=== PATIENT | male | born 1940 | race Caucasian/White ===

== ENCOUNTER 2020-08-06 20:25 | Inpatient (IN) | payer MEDICARE ==
[~2020-08-06] VITALS: Ht 180.3 cm; Wt 96.0 kg
[2020-08-06 21:20] LABS: BASOPHILS % (AUTO) 0.2 % (0.0-5.0); EOSINOPHILS % (AUTO) 1.1 % (0.0-8.0); HEMATOCRIT 34.3 % (42-54); MEAN CORPUSCULAR HEMOGLOBIN 34.3 pg (27.0-33.0); MEAN CORPUSCULAR HGB CONC 34.7 g/dL (32.0-36.0); MEAN CORPUSCULAR VOLUME 98.8 fL (79-99); MONOCYTES % (AUTO) 7.2 % (3.0-13.0); NEUTROPHILS % (AUTO) 79.9 % (40.0-77.0); PLATELET COUNT (AUTO) 285 K/uL (130-400); RED BLOOD CELL COUNT(AUTO) 3.47 MIL/uL (4.50-6.20); RED CELL DISTRIBUTION WIDTH 12.9 % (11.0-15.5); WHITE BLOOD COUNT (AUTO) 21.5 K/uL (4.8-10.8)
[2020-08-06 21:29] LABS: CREATININE 1.9 mg/dL (0.5-1.5); POTASSIUM 4.1 mmol/L (3.5-5.1)
[2020-08-06 21:47] LABS: ALBUMIN 3.4 g/dL (3.5-5.0); BILIRUBIN,TOTAL 0.8 mg/dL (0.2-1.0); TOTAL PROTEIN, SERUM 8.9 g/dL (6.0-8.3)
[2020-08-06] MEDS ORDERED: ACETAMINOPHEN 500 MG TABLET ONE (22:12)
[2020-08-06] MEDS ORDERED: ZOSYN 3.375GM+NS 50ML 50 ML IV ONE (22:12)
[2020-08-06 22:38] LABS: APPEARANCE,URINE Cloudy (CLEAR); BILIRUBIN,URINE Negative (NEGATIVE); COLOR,URINE Yellow (YELLOW); GLUCOSE, URINE (UA) Negative (NEGATIVE); KETONES,URINE Negative (NEGATIVE); LEUKOCYTE ESTERASE ,URINE Trace (NEGATIVE); NITRATE,URINE Negative (NEGATIVE); OCCULT BLOOD,URINE Trace (NEGATIVE); PROTEIN,URINE POS 2+ mg/dL (NEGATIVE); UROBILINOGEN,URINE 0.2 mg/dL (0.2-1.0)
[2020-08-06 22:41] LABS: INR 1.1 (0.85-1.15); PROTHROMBIN TIME 11.9 SEC (9.6-11.6)
[2020-08-06 22:42] LABS: PARTIAL THROMBOPLASTIN TIME 31.4 SEC (26.3-35.5)
[2020-08-06 22:50] LABS: BACTERIA,URINE Rare /HPF (None Seen); SQUAMOUS EPITHELIAL CELL,UR Moderate /HPF (0-2)
[2020-08-06] MEDS ORDERED: IOHEXOL-350 75 ML VIAL IV ONE (23:45)
[2020-08-07] VITALS (7 sets, daily range): BP systolic 106–129; BP diastolic 35–65
[2020-08-07] MEDS: 0.9%NACL 1000ML 1,000 ML IV SCH ×3 (01:00→21:00)
[2020-08-07] MEDS ORDERED: NITROGLYCERIN 0.4 MG SL TAB SL PRN (01:00)
[2020-08-07] MEDS ORDERED: VANCOMYCIN PROTOCOL PER PHARMACY IV PRN (01:00)
[2020-08-07] MEDS ORDERED: ACETAMINOPHEN 325 MG TAB PO PRN (01:00)
[2020-08-07] MEDS ORDERED: ONDANSETRON 4MG INJ IV PRN (01:00)
[2020-08-07] MEDS: CEFTRIAXONE 1G VIAL IV SCH ×2 (01:00→23:41)
[2020-08-07 01:46] LABS: CREATINE KINASE, TOTAL 230 U/L (21-232); MYOGLOBIN 415 ng/mL (10-92); TROPONIN I < 0.04 ng/mL (0.00-0.06)
[2020-08-07] MEDS ORDERED: VANCOMYCIN 1G/250ML KIT 250 ML IV ONE ×2 (02:12→02:30)
[2020-08-07] MEDS ORDERED: 0.9%NACL 1000ML 1,000 ML IV ONE (02:13)
[2020-08-07] MEDS ORDERED: CEFTRIAXONE 1G VIAL ONE (02:13)
[2020-08-07] MEDS ORDERED: AZITHROMYCIN 500MG+NS 250ML 250 ML IV SCH (02:45)
[2020-08-07] MEDS ORDERED: FLEC100T3 PO (03:09)
[2020-08-07] MEDS ORDERED: MAGN250T10 PO (03:09)
[2020-08-07] MEDS ORDERED: LOSA50TA64 PO (03:09)
[2020-08-07] MEDS ORDERED: APIX5TAB PO (03:09)
[2020-08-07] MEDS ORDERED: MULT-1367 PO (03:09)
[2020-08-07] MEDS ORDERED: ATOR40TA71 PO (03:09)
[2020-08-07] MEDS: AZITHROMYCIN 500MG+NS 250ML 250 ML IV SCH (05:00)
[2020-08-07] MEDS ORDERED: AZITHROMYCIN 500MG+NS 250ML 250 ML IV ONE (05:25)
[2020-08-07 05:37] LABS: MEAN CORPUSCULAR HEMOGLOBIN 34.2 pg (27.0-33.0); MEAN CORPUSCULAR HGB CONC 34.8 g/dL (32.0-36.0); MEAN CORPUSCULAR VOLUME 98.2 fL (79-99); PLATELET COUNT (AUTO) 233 K/uL (130-400); RED BLOOD CELL COUNT(AUTO) 2.75 MIL/uL (4.50-6.20); RED CELL DISTRIBUTION WIDTH 12.9 % (11.0-15.5); WHITE BLOOD COUNT (AUTO) 17.7 K/uL (4.8-10.8)
[2020-08-07 05:56] LABS: BAND NEUTROPHILS % (MANUAL) 4 % (0-2); LYMPHOCYTES % (MANUAL) 6 % (22-44); MAN.DIFF COMMENT-IMPRESSION MANUAL DIFFERENTIAL; MONOCYTES % (MANUAL) 5 % (2-9); PLATELET MORPHOLOGY COMMENT ADEQUATE; SEGMENTED NEUTROPHILS % 85 % (40-70)
[2020-08-07 05:59] LABS: ALBUMIN 2.6 g/dL (3.5-5.0); BILIRUBIN,TOTAL 0.5 mg/dL (0.2-1.0); CREATININE 1.8 mg/dL (0.5-1.5); MAGNESIUM 1.8 mg/dL (1.80-2.40); POTASSIUM 4.6 mmol/L (3.5-5.1); TOTAL PROTEIN, SERUM 6.8 g/dL (6.0-8.3)
[2020-08-07] MEDS ORDERED: COMPOUND IV REFRIGERATED 1 EACH IVSOLN MISC PRN (06:45)
[2020-08-07] MEDS: FAMOTIDINE 20MG TAB PO SCH ×2 (08:52→21:37)
[2020-08-07] MEDS: MAGNESIUM OXIDE 400 MG TABLET PO SCH ×2 (08:52→21:37)
[2020-08-07] MEDS: LOSARTAN 50 MG TABLET PO SCH (08:52)
[2020-08-07] MEDS: APIXABAN 5 MG TABLET PO SCH ×2 (08:53→21:37)
[2020-08-07] MEDS: MULTIVITAMIN TABLET PO SCH (08:53)
[2020-08-07] MEDS ORDERED: PNEUMOCOCCAL VACCINE POLYVALENT 0.5 ML/VIAL [PPV] SQ SCH (09:00)
[2020-08-07] MEDS ORDERED: HEPARIN 5,000 UNIT VIAL SQ SCH (09:00)
[2020-08-07] MEDS: FLECAINIDE ACETATE 100 MG TABLET PO SCH ×2 (09:06→21:37)
[2020-08-07] MEDS ORDERED: BENZOCAINE/MENTH/CETYLPYRD CL 1 EACH LOZENGE MM PRN (18:15)
[2020-08-07] MEDS ORDERED: BENZOCAINE/MENTH/CETYLPYRD CL 1 EACH LOZENGE MM ONE (18:18)
[2020-08-07] MEDS: ATORVASTATIN 40 MG TABLET PO SCH (21:37)
[2020-08-07] MEDS: VANCOMYCIN 1G 1.25 GM in 0.9% NACL 250ML 250 ML IV SCH (21:38)
[2020-08-08] VITALS (7 sets, daily range): BP systolic 115–132; BP diastolic 55–71
[2020-08-08 05:17] LABS: BASOPHILS % (AUTO) 0.4 % (0.0-5.0); EOSINOPHILS % (AUTO) 2.1 % (0.0-8.0); HEMATOCRIT 27.7 % (42-54); LYMPHOCYTES % (AUTO) 15.5 % (21.0-51.0); MEAN CORPUSCULAR HEMOGLOBIN 34.1 pg (27.0-33.0); MEAN CORPUSCULAR HGB CONC 33.6 g/dL (32.0-36.0); MEAN CORPUSCULAR VOLUME 101.5 fL (79-99); MONOCYTES % (AUTO) 10.8 % (3.0-13.0); NEUTROPHILS % (AUTO) 69.9 % (40.0-77.0); PLATELET COUNT (AUTO) 263 K/uL (130-400); RED BLOOD CELL COUNT(AUTO) 2.73 MIL/uL (4.50-6.20); RED CELL DISTRIBUTION WIDTH 13.1 % (11.0-15.5); WHITE BLOOD COUNT (AUTO) 14.2 K/uL (4.8-10.8)
[2020-08-08] MEDS: AZITHROMYCIN 500MG+NS 250ML 250 ML IV SCH (05:58)
[2020-08-08 05:59] LABS: ALBUMIN 2.5 g/dL (3.5-5.0); BILIRUBIN,TOTAL 0.4 mg/dL (0.2-1.0); CREATININE 1.6 mg/dL (0.5-1.5); POTASSIUM 4.3 mmol/L (3.5-5.1)
[2020-08-08 06:10] LABS: CRP QUANTITATIVE 265.3 mg/L (0.00-9.0)
[2020-08-08 07:00] LABS: ERYTHROCYTE SEDIMENTATION RATE 119 MM/HR (0-20)
[2020-08-08] MEDS: FAMOTIDINE 20MG TAB PO SCH ×2 (09:00→20:43)
[2020-08-08] MEDS: APIXABAN 5 MG TABLET PO SCH ×2 (09:00→20:43)
[2020-08-08] MEDS: MAGNESIUM OXIDE 400 MG TABLET PO SCH ×2 (09:00→20:42)
[2020-08-08] MEDS: MULTIVITAMIN TABLET PO SCH (09:00)
[2020-08-08] MEDS: LOSARTAN 50 MG TABLET PO SCH (09:00)
[2020-08-08] MEDS ORDERED: SOLU-MEDROL 40MG VIAL IVP SCH (10:45)
[2020-08-08] MEDS: FLECAINIDE ACETATE 100 MG TABLET PO SCH ×2 (11:30→20:43)
[2020-08-08] MEDS: ATORVASTATIN 40 MG TABLET PO SCH (20:43)
[2020-08-08] MEDS: VANCOMYCIN 1G 1.25 GM in 0.9% NACL 250ML 250 ML IV SCH (20:43)
[2020-08-09] MEDS: CEFTRIAXONE 1G VIAL IV SCH (00:46)
[2020-08-09 03:51] VITALS: BP 131/71
[2020-08-09] MEDS: AZITHROMYCIN 500MG+NS 250ML 250 ML IV SCH (04:40)
[2020-08-09 05:14] LABS: BASOPHILS % (AUTO) 0.3 % (0.0-5.0); EOSINOPHILS % (AUTO) 1.1 % (0.0-8.0); HEMATOCRIT 28.2 % (42-54); LYMPHOCYTES % (AUTO) 11.4 % (21.0-51.0); MEAN CORPUSCULAR HEMOGLOBIN 33.9 pg (27.0-33.0); MEAN CORPUSCULAR VOLUME 99.6 fL (79-99); MONOCYTES % (AUTO) 7.1 % (3.0-13.0); NEUTROPHILS % (AUTO) 78.2 % (40.0-77.0); PLATELET COUNT (AUTO) 303 K/uL (130-400); RED BLOOD CELL COUNT(AUTO) 2.83 MIL/uL (4.50-6.20); RED CELL DISTRIBUTION WIDTH 12.9 % (11.0-15.5)
[2020-08-09 05:28] LABS: ALBUMIN 2.5 g/dL (3.5-5.0); BILIRUBIN,TOTAL 0.3 mg/dL (0.2-1.0); CREATININE 1.7 mg/dL (0.5-1.5); POTASSIUM 4.8 mmol/L (3.5-5.1); TOTAL PROTEIN, SERUM 7.3 g/dL (6.0-8.3)
[2020-08-09 08:16] VITALS: BP 132/92
[2020-08-09] MEDS: FLECAINIDE ACETATE 100 MG TABLET PO SCH ×2 (09:56→20:10)
[2020-08-09] MEDS: MULTIVITAMIN TABLET PO SCH (09:56)
[2020-08-09] MEDS: FAMOTIDINE 20MG TAB PO SCH ×2 (09:56→20:10)
[2020-08-09] MEDS: LOSARTAN 50 MG TABLET PO SCH (09:56)
[2020-08-09] MEDS: MAGNESIUM OXIDE 400 MG TABLET PO SCH ×2 (09:56→20:10)
[2020-08-09] MEDS: APIXABAN 5 MG TABLET PO SCH ×2 (09:57→20:10)
[2020-08-09 12:00] VITALS: BP 121/64
[2020-08-09 16:00] VITALS: BP 115/55
[2020-08-09 19:43] VITALS: BP 112/64
[2020-08-09] MEDS: ATORVASTATIN 40 MG TABLET PO SCH (20:10)
[2020-08-10] VITALS (7 sets, daily range): BP systolic 110–153; BP diastolic 57–74
[2020-08-10] MEDS: CEFTRIAXONE 1G VIAL IV SCH (00:36)
[2020-08-10] MEDS: ACETAMINOPHEN 325 MG TAB PO PRN ×2 (00:44→09:09)
[2020-08-10 05:51] LABS: BASOPHILS % (AUTO) 0.4 % (0.0-5.0); EOSINOPHILS % (AUTO) 2.1 % (0.0-8.0); HEMATOCRIT 29.2 % (42-54); MEAN CORPUSCULAR HEMOGLOBIN 33.2 pg (27.0-33.0); MEAN CORPUSCULAR HGB CONC 32.9 g/dL (32.0-36.0); MONOCYTES % (AUTO) 8.8 % (3.0-13.0); NEUTROPHILS % (AUTO) 68.2 % (40.0-77.0); PLATELET COUNT (AUTO) 350 K/uL (130-400); RED BLOOD CELL COUNT(AUTO) 2.89 MIL/uL (4.50-6.20); RED CELL DISTRIBUTION WIDTH 13.2 % (11.0-15.5); WHITE BLOOD COUNT (AUTO) 16.3 K/uL (4.8-10.8)
[2020-08-10 06:06] LABS: ALBUMIN 2.5 g/dL (3.5-5.0); BILIRUBIN,TOTAL 0.2 mg/dL (0.2-1.0); CREATININE 1.7 mg/dL (0.5-1.5); POTASSIUM 4.5 mmol/L (3.5-5.1); TOTAL PROTEIN, SERUM 7.1 g/dL (6.0-8.3)
[2020-08-10] MEDS: FAMOTIDINE 20MG TAB PO SCH ×2 (09:03→20:48)
[2020-08-10] MEDS: MULTIVITAMIN TABLET PO SCH (09:03)
[2020-08-10] MEDS: APIXABAN 5 MG TABLET PO SCH ×2 (09:03→20:48)
[2020-08-10] MEDS: FLECAINIDE ACETATE 100 MG TABLET PO SCH ×2 (09:04→20:47)
[2020-08-10] MEDS: MAGNESIUM OXIDE 400 MG TABLET PO SCH ×2 (09:04→20:48)
[2020-08-10] MEDS: LOSARTAN 50 MG TABLET PO SCH (09:04)
[2020-08-10] MEDS: SOLU-MEDROL 40MG VIAL IVP SCH (12:22)
[2020-08-10] MEDS ORDERED: VANCOMYCIN PROTOCOL PER PHARMACY IV SCH (15:15)
[2020-08-10] MEDS ORDERED: COMPOUND IV REFRIGERATED 1 EACH IVSOLN MISC PRN (15:30)
[2020-08-10] MEDS ORDERED: VANCOMYCIN 1G 1.5 GM in 0.9% NACL 250ML 250 ML IV SCH (16:00)
[2020-08-10] MEDS: ATORVASTATIN 40 MG TABLET PO SCH (20:48)
[2020-08-11] MEDS: CEFTRIAXONE 1G VIAL IV SCH (02:01)
[2020-08-11 03:19] VITALS: BP 137/73
[2020-08-11 06:13] LABS: BASOPHILS % (AUTO) 0.4 % (0.0-5.0); EOSINOPHILS % (AUTO) 0.2 % (0.0-8.0); HEMATOCRIT 29.9 % (42-54); LYMPHOCYTES % (AUTO) 16.8 % (21.0-51.0); MEAN CORPUSCULAR HEMOGLOBIN 32.9 pg (27.0-33.0); MEAN CORPUSCULAR HGB CONC 33.1 g/dL (32.0-36.0); MEAN CORPUSCULAR VOLUME 99.3 fL (79-99); MONOCYTES % (AUTO) 8.8 % (3.0-13.0); PLATELET COUNT (AUTO) 394 K/uL (130-400); RED BLOOD CELL COUNT(AUTO) 3.01 MIL/uL (4.50-6.20); RED CELL DISTRIBUTION WIDTH 12.8 % (11.0-15.5); WHITE BLOOD COUNT (AUTO) 15.9 K/uL (4.8-10.8)
[2020-08-11 06:22] LABS: CREATININE 1.5 mg/dL (0.5-1.5); POTASSIUM 4.6 mmol/L (3.5-5.1)
[2020-08-11 08:06] VITALS: BP 142/66
[2020-08-11] MEDS: MAGNESIUM OXIDE 400 MG TABLET PO SCH (08:40)
[2020-08-11] MEDS: LOSARTAN 50 MG TABLET PO SCH (08:40)
[2020-08-11] MEDS: SOLU-MEDROL 40MG VIAL IVP SCH (08:40)
[2020-08-11] MEDS: FAMOTIDINE 20MG TAB PO SCH (08:40)
[2020-08-11] MEDS: APIXABAN 5 MG TABLET PO SCH (08:41)
[2020-08-11] MEDS: FLECAINIDE ACETATE 100 MG TABLET PO SCH (08:41)
[2020-08-11] MEDS: MULTIVITAMIN TABLET PO SCH (08:41)
[2020-08-11] MEDS ORDERED: SOLU-MEDROL 40MG VIAL IVP SCH (09:00)
[2020-08-11] MEDS ORDERED: METH4TAB3 PO (09:32)
[2020-08-11 11:29] VITALS: BP 149/48
== END 2020-08-11 15:40 | disposition home or self-care (01) | DRG 871 ==
LOC: EDH 20:25 → EDHIP 08-07 00:37 → 3DH 08-07 00:55
PROVIDERS: ADMIT Hospitalist; ATTEND Hospitalist
PROC: 3E0234Z Introduction of Serum, Toxoid and Vaccine into Muscle, Percutaneous Approach (ICD-10-PCS; principal; 2020-08-07)
DX: A41.50 Gram-negative sepsis, unspecified (principal); J15.6 Pneumonia due to other Gram-negative bacteria; N39.0 Urinary tract infection, site not specified; L03.116 Cellulitis of left lower limb; L03.115 Cellulitis of right lower limb; N17.9 Acute kidney failure, unspecified; I12.9 Hypertensive chronic kidney disease with stage 1 through stage 4 chronic kidney disease, or unspecified chronic kidney disease; E78.5 Hyperlipidemia, unspecified; I48.91 Unspecified atrial fibrillation; Z96.651 Presence of right artificial knee joint; I25.10 Atherosclerotic heart disease of native coronary artery without angina pectoris; R22.1 Localized swelling, mass and lump, neck; R53.81 Other malaise; N18.30 Chronic kidney disease, stage 3 unspecified; E66.9 Obesity, unspecified; Z68.29 Body mass index [BMI] 29.0-29.9, adult; Z95.5 Presence of coronary angioplasty implant and graft; Z79.01 Long term (current) use of anticoagulants; Z23 Encounter for immunization; Z82.3 Family history of stroke; Z80.0 Family history of malignant neoplasm of digestive organs; Z82.49 Family history of ischemic heart disease and other diseases of the circulatory system; Z20.822 Contact with and (suspected) exposure to COVID-19
CPT/HCPCS: 36415; 70450; 70490; 71045; 71275; 76882; 80048; 80053; 80202; 81001; 82550; 83605; 83735; 83874; 83880; 84145; 84484; 85025; 85378; 85610; 85651; 85730; 86140; 87040; 87071; 87077; 87088; 87186; 87205; 87426; 87641; 87804; 87880; 90732; 92610; 93005; 93971; G0378; J0456; J0696; J2543; J2920; J3370; J7030; J7050; Q9967; U0003

== ENCOUNTER → 2021-03-27 | Outpatient (CLI) | payer MEDICARE ==
[~2021-03-27] MED LIST: APIX5TAB PO; ATOR40TA71 PO; FLEC100T3 PO; LOSA50TA64 PO; MAGN250T10 PO; METH4TAB3 PO; MULT-1367 PO
== END | disposition home or self-care (01) ==
LOC: RAH 11:53
PROVIDERS: ATTEND Internal Medicine
DX: I70.0 Atherosclerosis of aorta (principal); M47.815 Spondylosis without myelopathy or radiculopathy, thoracolumbar region; I48.91 Unspecified atrial fibrillation
CPT/HCPCS: 71046

== ENCOUNTER 2021-04-04 06:35 | Day surgery (SDC) | payer MEDICARE ==
[2021-03-30 16:37] LABS: BASOPHILS % (AUTO) 0.6 % (0.0-5.0); EOSINOPHILS % (AUTO) 4.2 % (0.0-8.0); HEMATOCRIT 29.4 % (42-54); MEAN CORPUSCULAR HEMOGLOBIN 33.7 pg (27.0-33.0); MEAN CORPUSCULAR HGB CONC 34.4 g/dL (32.0-36.0); MONOCYTES % (AUTO) 12.9 % (3.0-13.0); NEUTROPHILS % (AUTO) 55.1 % (40.0-77.0); PLATELET COUNT (AUTO) 222 K/uL (130-400); RED CELL DISTRIBUTION WIDTH 13.2 % (11.0-15.5); WHITE BLOOD COUNT (AUTO) 6.5 K/uL (4.8-10.8)
[2021-03-30 16:45] LABS: CREATININE 1.7 mg/dL (0.5-1.5); POTASSIUM 4.6 mmol/L (3.5-5.1)
[2021-04-03 11:35] VITALS: BP 140/63
[2021-04-04] VITALS (13 sets, daily range): BP systolic 107–132; BP diastolic 50–77
[~2021-04-04] VITALS: Ht 175.3 cm; Wt 88.8 kg
[~2021-04-04 06:35] MED LIST changes: -METH4TAB3 PO
[2021-04-04] MEDS ORDERED: LACTATED RINGERS 1000ML 1,000 ML IV ONE (07:15)
[2021-04-04] MEDS ORDERED: PHENYLEPHRINE HCL 10 MG/ML 1ML VIAL IV ONE (07:19)
[2021-04-04] MEDS ORDERED: LIDOCAINE PF 100MG/5ML (2%) SYRINGE 5ML ONE (07:19)
[2021-04-04] MEDS ORDERED: DEXAMETHASONE SOD PHOSPHATE 10MG/ML 1ML VIAL ONE (07:19)
[2021-04-04] MEDS ORDERED: SUCCINYLCHOLINE CHLORIDE 20 MG/ML 10 ML VIAL ONE ×2 (07:19→07:36)
[2021-04-04] MEDS ORDERED: ONDANSETRON 4MG INJ ONE (07:20)
[2021-04-04] MEDS ORDERED: EPHEDRINE SULFATE 50 MG/ML AMPULE ONE (07:20)
[2021-04-04] MEDS ORDERED: GLYCOPYRROLATE 1 MG/5 ML SYRINGE ONE (07:20)
[2021-04-04] MEDS ORDERED: PROPOFOL 10 MG/ML 20ML VIAL IV ONE (07:20)
[2021-04-04] MEDS ORDERED: NEOSTIGMINE 5MG/5ML SYR IV ONE (07:20)
[2021-04-04] MEDS ORDERED: ROCURONIUM 10MG/1ML SYR 10 MG/ML ML ONE (07:21)
[2021-04-04] MEDS ORDERED: NEOMY SULF/BACITRAC ZN/POLY OINT 30GM TUBE TP ONE (07:21)
[2021-04-04] MEDS ORDERED: FENTANYL CITRATE PF 50 MCG/1 ML 2ML VIAL ONE (07:21)
[2021-04-04] MEDS ORDERED: EPINEPHRINE 1 MG/ML 30ML VIAL IJ ONE (07:21)
[2021-04-04] MEDS ORDERED: LIDOCAINE HCL 1% 20 ML VIAL ONE (07:21)
[2021-04-04] MEDS ORDERED: BACITRACIN 28.4 GM OINT TP ONE (07:21)
[2021-04-04] MEDS ORDERED: THROMBIN-JMI 5000 UNIT/VIAL TP ONE (07:22)
== END 2021-04-04 10:56 | disposition home or self-care (01) ==
LOC: DAH 06:35
PROVIDERS: ATTEND Otolaryngology Plastic Surgery within the Head & Neck
DX: H72.91 Unspecified perforation of tympanic membrane, right ear (principal); Z20.822 Contact with and (suspected) exposure to COVID-19; H91.8X1 Other specified hearing loss, right ear; H70.11 Chronic mastoiditis, right ear; I44.0 Atrioventricular block, first degree; I10 Essential (primary) hypertension; I25.10 Atherosclerotic heart disease of native coronary artery without angina pectoris; I48.91 Unspecified atrial fibrillation; Z79.01 Long term (current) use of anticoagulants; Z79.899 Other long term (current) drug therapy; Z98.890 Other specified postprocedural states
CPT/HCPCS: 36415; 69645; 80048; 85025; 87635; 93005; A4215; A4221; A4222; A4223; A4452; A4649; A4663; A6260; A6446; C9803; J0171; J0330 ×2; J1100; J2001; J2370; J2405; J2704; J3010; J3490; J7040; J7120 ×2; J2710

== ENCOUNTER 2022-03-06 23:42 | Observation (INO) | payer MEDICARE ==
[~2022-03-06] VITALS: Ht 177.8 cm; Wt 95.3 kg
[2022-03-07 00:18] LABS: BASOPHILS % (AUTO) 0.2 % (0.0-5.0); EOSINOPHILS % (AUTO) 0.7 % (0.0-8.0); LYMPHOCYTES % (AUTO) 5.8 % (21.0-51.0); MEAN CORPUSCULAR HEMOGLOBIN 33.7 pg (27.0-33.0); MEAN CORPUSCULAR HGB CONC 33.9 g/dL (32.0-36.0); MEAN CORPUSCULAR VOLUME 99.4 fL (79-99); MONOCYTES % (AUTO) 10.1 % (3.0-13.0); NEUTROPHILS % (AUTO) 82.7 % (40.0-77.0); PLATELET COUNT (AUTO) 259 K/uL (130-400); RED BLOOD CELL COUNT(AUTO) 3.32 MIL/uL (4.50-6.20); RED CELL DISTRIBUTION WIDTH 12.8 % (11.0-15.5); WHITE BLOOD COUNT (AUTO) 14.9 K/uL (4.8-10.8)
[2022-03-07 00:27] LABS: CREATININE 2.1 mg/dL (0.5-1.5)
[2022-03-07] MEDS ORDERED: IPRATROPIUM/ALBUTEROL SULFATE 3 ML SOLUTION IH ONE (00:30)
[2022-03-07] MEDS ORDERED: FUROSEMIDE 40MG VIAL IV ONE (00:30)
[2022-03-07 00:33] LABS: ALBUMIN 3.8 g/dL (3.5-5.0); TOTAL PROTEIN, SERUM 7.8 g/dL (6.0-8.3)
[2022-03-07] MEDS ORDERED: CEFTRIAXONE 1G VIAL IVP ONE (02:00)
[2022-03-07] MEDS ORDERED: APIX5TAB PO (03:17)
[2022-03-07] MEDS ORDERED: ATOR40TA71 PO (03:17)
[2022-03-07] MEDS ORDERED: MAGN250T35 PO (03:17)
[2022-03-07] MEDS ORDERED: MULT-1367 PO (03:17)
[2022-03-07] MEDS ORDERED: LOSA50TA64 PO (03:17)
[2022-03-07] MEDS ORDERED: METO25TA6 PO (03:17)
[2022-03-07] MEDS: IPRATROPIUM/ALBUTEROL SULFATE 3 ML SOLUTION IH SCH ×3 (06:23→19:48)
[2022-03-07] MEDS: LOSARTAN 50 MG TABLET PO SCH (08:25)
[2022-03-07] MEDS: APIXABAN 5 MG TABLET PO SCH ×2 (08:25→20:42)
[2022-03-07] MEDS: METOPROLOL TARTRATE 25 MG TAB PO SCH (08:25)
[2022-03-07] MEDS: MULTIVITAMIN TABLET PO SCH (08:25)
[2022-03-07] MEDS: Magnesium 500 MG PO SCH (09:00)
[2022-03-07 09:30] VITALS: BP 124/57
[2022-03-07 12:00] VITALS: BP 101/63
[2022-03-07] MEDS ORDERED: METO-408 PO (12:08)
[2022-03-07] MEDS ORDERED: POTA-193 PO (12:11)
[2022-03-07 16:00] VITALS: BP 125/64
[2022-03-07 20:10] VITALS: BP 112/45
[2022-03-07] MEDS ORDERED: ATORVASTATIN 40 MG TABLET PO SCH (21:00)
[2022-03-07 23:29] VITALS: BP 124/70
[2022-03-08] MEDS: IPRATROPIUM/ALBUTEROL SULFATE 3 ML SOLUTION IH SCH ×2 (00:13→07:03)
[2022-03-08] MEDS ORDERED: CEFTRIAXONE 1G VIAL IVP SCH (02:00)
[2022-03-08 03:44] VITALS: BP 96/50
[2022-03-08 05:35] LABS: BASOPHILS % (AUTO) 0.3 % (0.0-5.0); EOSINOPHILS % (AUTO) 6.7 % (0.0-8.0); HEMATOCRIT 27.8 % (42-54); LYMPHOCYTES % (AUTO) 17.2 % (21.0-51.0); MEAN CORPUSCULAR HEMOGLOBIN 34.1 pg (27.0-33.0); MEAN CORPUSCULAR HGB CONC 33.8 g/dL (32.0-36.0); MEAN CORPUSCULAR VOLUME 100.7 fL (79-99); MONOCYTES % (AUTO) 12.3 % (3.0-13.0); NEUTROPHILS % (AUTO) 63.1 % (40.0-77.0); PLATELET COUNT (AUTO) 197 K/uL (130-400); RED BLOOD CELL COUNT(AUTO) 2.76 MIL/uL (4.50-6.20); RED CELL DISTRIBUTION WIDTH 13.2 % (11.0-15.5); WHITE BLOOD COUNT (AUTO) 7.2 K/uL (4.8-10.8)
[2022-03-08 05:43] LABS: CREATININE 1.5 mg/dL (0.5-1.5); POTASSIUM 4.2 mmol/L (3.5-5.1)
[2022-03-08 05:48] LABS: ALBUMIN 3.1 g/dL (3.5-5.0); TOTAL PROTEIN, SERUM 6.6 g/dL (6.0-8.3)
[2022-03-08 08:00] VITALS: BP 123/67
[2022-03-08] MEDS: Magnesium 500 MG PO SCH (09:00)
[2022-03-08] MEDS: APIXABAN 5 MG TABLET PO SCH (09:02)
[2022-03-08] MEDS: MULTIVITAMIN TABLET PO SCH (09:02)
[2022-03-08] MEDS: METOPROLOL TARTRATE 25 MG TAB PO SCH (09:03)
[2022-03-08] MEDS: LOSARTAN 50 MG TABLET PO SCH (09:03)
== END 2022-03-08 09:55 | disposition home or self-care (01) ==
LOC: EDH 23:42 → EDHIP 03-07 03:02 → 3CH 03-07 09:05
PROVIDERS: ADMIT Internal Medicine; ATTEND Internal Medicine
DX: J44.1 Chronic obstructive pulmonary disease with (acute) exacerbation (principal); Z20.822 Contact with and (suspected) exposure to COVID-19; I48.91 Unspecified atrial fibrillation; I13.0 Hypertensive heart and chronic kidney disease with heart failure and stage 1 through stage 4 chronic kidney disease, or unspecified chronic kidney disease; I50.9 Heart failure, unspecified; N18.9 Chronic kidney disease, unspecified; I35.0 Nonrheumatic aortic (valve) stenosis; N17.9 Acute kidney failure, unspecified; Z87.891 Personal history of nicotine dependence; Z79.899 Other long term (current) drug therapy
CPT/HCPCS: 71045; 94640 ×6; 96374; 96375; 99285; 84484; 80053 ×2; 83880; 85025 ×2; 87804 ×2; 36415 ×2; 87635; 93005; 94664; 96376; G0378 ×30; C9803; J0696 ×2; J1940

== ENCOUNTER → 2022-09-06 | Outpatient (CLI) | payer MEDICARE ==
[~2022-09-06] MED LIST changes: -FLEC100T3 PO; -MAGN250T10 PO; +MAGN250T35 PO; +METO-408 PO; +POTA-193 PO
== END | disposition home or self-care (01) ==
LOC: RAH 14:12
PROVIDERS: ATTEND Internal Medicine
DX: M51.36 Other intervertebral disc degeneration, lumbar region (principal); M53.3 Sacrococcygeal disorders, not elsewhere classified; M54.16 Radiculopathy, lumbar region
CPT/HCPCS: 72100

== ENCOUNTER → 2024-03-11 | Outpatient (CLI) | payer MEDICARE ==
[~2024-03-11] MED LIST changes: +ALLO100T PO; +FLEC100T3 PO; +FLUT1BLS3 IH; +ISOS10TA8 PO
--- NOTE | 2024-03-11 11:39 | HMCIMG ---
CHEST 2VWS HISTORY: Bronchitis COMPARISON: 06/20/2023 FINDINGS: Frontal and lateral projections of the chest were obtained. There are prominent interstitial markings with possible superimposed infiltrates. The heart is oral enlarged. Early calcifications are seen. Elevation of right hemidiaphragm is seen unchanged. Degenerative changes are seen of the thoracolumbar spine. IMPRESSION: 1. There are prominent interstitial markings.
== END | disposition home or self-care (01) ==
LOC: RAH 10:58
PROVIDERS: ATTEND Internal Medicine
DX: I51.7 Cardiomegaly (principal); J40 Bronchitis, not specified as acute or chronic; M47.815 Spondylosis without myelopathy or radiculopathy, thoracolumbar region
CPT/HCPCS: 71046